=== PATIENT | female | born 1945 | race Caucasian/White ===

== ENCOUNTER → 2023-09-02 | Outpatient (CLI) | payer MEDICARE ==
[~2023-09-02] VITALS: Ht 172.7 cm; Wt 70.3 kg
[~2023-09-02] MED LIST: ASPIRIN 81M81 MG/TA2 PO; CELEXA 20MG20 MG/TAB PO; COLACE 100100 MG/CAP PO; DECADRON 4MG TAB4 MG PO; DESYREL 50MG50 MG PO; HALDOL 1MG T1 MG/TAB PO; IPRATROPIUM BROM3 M1 IH; Iohexol 300 - 100 ML VIAL URETER -L ONE; LEVSIN0.125 M1 PO; LYVISPAH5 MG PO; MS CONTIN 115 MG/TAB PO; Midazolam 2 MG/2 ML VIAL IV SCH; NORVASC 5MG5 MG/TAB PO; PRILOSEC 20MG20 MG PO; ROXANOL 20MG20 MG/ML PO; SENNA-LAX8.6 MG PO; SEROQUEL 2525 MG/TAB PO; VALIUM 2MG T2 MG/TAB PO; cefTRIAXone 1 G in Water For Injection,Sterile 10 ML IV SCH; fentaNYL 50 MCG/ML 2 ML VIAL IV SCH
[2023-09-02 10:42] VITALS: BP 111/69; PULSE 128; TEMP 98.5
--- NOTE | 2023-09-02 13:40 | NUR ---
Please see merge document for record of interventions, vitals and medications administered during left nephrostomy tube exchange
[2023-09-02 13:55] VITALS: BP 146/82; PULSE 143
[2023-09-02 14:10] VITALS: BP 104/77; PULSE 134
[2023-09-02 14:25] VITALS: BP 114/84; PULSE 137
== END ==
LOC: COL.RAD 10:08
DX: J90 Pleural effusion, not elsewhere classified (principal); Z93.6 Other artificial openings of urinary tract status
CPT/HCPCS: C1729; C1769; J0696; J1644; J2250; J3010; Q9967